=== PATIENT | female | born 1945 | race Two or more races ===

== ENCOUNTER → 2024-12-22 | Outpatient (CLI) | payer MEDICAID, SELFPAY ==
--- NOTE | 2024-12-22 11:45 | XR_ITS ---
Examination: Screening digital mammography, bilateral Computer aided detection 3-D breast Tomosynthesis, bilateral Date and time of exam: December 22, 2024 1144 hrs. Compared to mammograms dating to June 02, 2020 Indication: Screening Technique: Nonmagnified MLO, CC views of the breasts to been obtained, reconstructed from 3-D Tomosynthesis images. R2 computer aided detection program utilized for evaluation of suspicious masses and/or abnormal calcifications. 3-D Tomosynthesis images obtained. Findings: Scattered areas of fibroglandular density Asymmetric more pronounced glandular tissue left breast again noted No interval suspicious masses Impression: BI-RADS category II: Benign Findings. Recommend 1 year follow-up mammogram.
== END | disposition home or self-care (01) ==
PROVIDERS: Referring Provider Specialist; Visit Provider Specialist
DX: Z12.31 Encounter for screening mammogram for malignant neoplasm of breast (principal); R92.323 Mammographic fibroglandular density, bilateral breasts
CPT/HCPCS: 77063; 77067

== ENCOUNTER → 2025-03-28 | Outpatient (CLI) | payer MEDICARE, MEDICAID, SELFPAY ==
--- NOTE | 2025-03-28 09:48 | XR_ITS ---
Examination: Cervical spine 4 views TECHNIQUE: AP, lateral, swimmer's lateral, coned AP odontoid cervical spine 4 views Date and time: March 28, 2025 at 1026 hours INDICATIONS: Neck pain beginning one month ago, pain radiating down the right arm from the neck FINDINGS: Prominent osteopenia Adequate alignment cervical vertebral bodies No cervical fracture Intact odontoid IMPRESSION: No cervical fracture As clinically warranted, if neck radicular right arm pain persists, consider MRI cervical spine without contrast follow-up
--- NOTE | 2025-03-28 09:48 | XR_ITS ---
Examination: Thoracic spine 3 views Technique one AP lateral coned lateral upper dorsal spine 3 views Date and time: March 28, 2025 1031 hours INDICATIONS: Upper back pain beginning one month ago. 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 No acute thoracic fracture Moderate to advanced diffuse thoracic disc narrowing Midthoracic dextroscoliosis 8 degrees IMPRESSION: Severe osteopenia Moderate kyphosis dorsal spine Moderate to advanced diffuse thoracic degenerative disc disease
== END | disposition home or self-care (01) ==
PROVIDERS: PCP Nurse Practitioner Family; Referring Provider Nurse Practitioner Family; Visit Provider Nurse Practitioner Family
DX: M54.2 Cervicalgia (principal); M85.88 Other specified disorders of bone density and structure, other site; M40.294 Other kyphosis, thoracic region; M51.34 Other intervertebral disc degeneration, thoracic region
CPT/HCPCS: 72040; 72070

== ENCOUNTER → 2025-04-06 | Outpatient (CLI) | payer MEDICARE, MEDICAID, SELFPAY ==
--- NOTE | 2025-04-06 12:42 | XR_ITS ---
Examination: Facial bones 2 views TECHNIQUE: Elicia lateral facial series 2 views INDICATIONS: Ground-level fall today with injury to the face, facial pain Date and time: March 29, 2025 1318 hours FINDINGS: Orbital rims appear intact Maxilla mandible intact No nasal bone fracture IMPRESSION: No acute facial fracture
== END | disposition home or self-care (01) ==
PROVIDERS: PCP Nurse Practitioner Family; Referring Provider Nurse Practitioner Family; Visit Provider Nurse Practitioner Family
DX: S09.93XA Unspecified injury of face, initial encounter (principal); W18.30XA Fall on same level, unspecified, initial encounter
CPT/HCPCS: 70150